=== PATIENT | male | born 2000 | race Two or more races ===

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

== ENCOUNTER 2022-06-17 01:55 | Emergency (ER) | payer MEDICAID ==
[~2022-06-17] VITALS: Ht 177.8 cm; Wt 100.0 kg
[2022-06-17] MEDS ORDERED: SODIUM CHLORIDE 0.9% 1,000 ML IV ONE (02:30)
[2022-06-17] MEDS ORDERED: TETANUS-DIPTH-ACEL PERTUSSIS 0.5ML SYR Tdap IM ONE (05:00)
[2022-06-17 05:30] VITALS: BP 114/98
== END 2022-06-17 05:55 | disposition home or self-care (01) ==
LOC: EDBD 01:55 → ER 01:55
DX: S01.111A Laceration without foreign body of right eyelid and periocular area, initial encounter (principal); S01.312A Laceration without foreign body of left ear, initial encounter; J45.909 Unspecified asthma, uncomplicated; Y08.89XA Assault by other specified means, initial encounter; Y93.89 Activity, other specified; Y92.89 Other specified places as the place of occurrence of the external cause; Y99.8 Other external cause status
CPT/HCPCS: 12013; 70450; 70486; 71250; 72125; 74176; 90471; 90715; 96360; 99285; J7030; 96361